=== PATIENT | male | born 1965 | race Caucasian/White ===

== ENCOUNTER → 2023-03-27 06:28 | Day surgery (SDC) | payer OTHER, SELFPAY | LOC: GI 06:28 | PROVIDERS: ATTENDING PHYSICIAN Surgery | DX: Z12.11 Encounter for screening for malignant neoplasm of colon (principal); Z85.038 Personal history of other malignant neoplasm of large intestine | CPT/HCPCS: G0105 ==

== ENCOUNTER → 2023-09-14 11:34 | Outpatient (REF) | payer OTHER, SELFPAY | LOC: RAD 11:34 | PROVIDERS: ATTENDING PHYSICIAN Nurse Practitioner Primary Care; FAMILY PHYSICIAN Family Medicine | DX: C18.7 Malignant neoplasm of sigmoid colon (principal) | CPT/HCPCS: 71260; 74177; Q9967 ==

== ENCOUNTER → 2023-10-23 13:13 | Outpatient (REF) | payer OTHER, SELFPAY ==
[2023-10-23 13:34] VITALS: BP 149/77; BP_SYST 104
[2023-10-23 14:24] VITALS: BP 137/81
== END ==
LOC: RADI 13:13
PROVIDERS: ATTENDING PHYSICIAN Internal Medicine Hematology & Oncology; REFERRING PHYSICIAN Surgery
DX: Z45.2 Encounter for adjustment and management of vascular access device (principal); Z85.038 Personal history of other malignant neoplasm of large intestine
CPT/HCPCS: 36590; 77001

== ENCOUNTER → 2024-03-26 12:56 | Outpatient (REF) | payer OTHER, SELFPAY | LOC: RAD 12:56 | PROVIDERS: ATTENDING PHYSICIAN Nurse Practitioner Primary Care; FAMILY PHYSICIAN Family Medicine | DX: C18.7 Malignant neoplasm of sigmoid colon (principal) | CPT/HCPCS: 71260; 74177; Q9967 ==

== ENCOUNTER → 2024-04-24 10:32 | Outpatient (REF) | payer OTHER, SELFPAY | LOC: MRI 3T 10:32 | PROVIDERS: ATTENDING PHYSICIAN Surgery; FAMILY PHYSICIAN Family Medicine | DX: R97.20 Elevated prostate specific antigen [PSA] (principal) | CPT/HCPCS: 72197; A9575 ==

== ENCOUNTER 2024-11-18 06:18 | Day surgery (SDC) | payer OTHER, SELFPAY | END 2024-11-18 14:45 | disposition home or self-care (01) | LOC: GI 06:18 | PROVIDERS: ATTENDING PHYSICIAN Surgery | DX: Z12.11 Encounter for screening for malignant neoplasm of colon (principal); D17.5 Benign lipomatous neoplasm of intra-abdominal organs; D12.0 Benign neoplasm of cecum; D12.2 Benign neoplasm of ascending colon; D12.4 Benign neoplasm of descending colon; D12.5 Benign neoplasm of sigmoid colon; Z85.048 Personal history of other malignant neoplasm of rectum, rectosigmoid junction, and anus; Z98.84 Bariatric surgery status | CPT/HCPCS: 45385; 45381; 45380; 88305 ==

== ENCOUNTER → 2024-11-19 11:58 | Outpatient (REF) | payer OTHER, SELFPAY | LOC: RAD 11:58 | PROVIDERS: ATTENDING PHYSICIAN Internal Medicine Hematology & Oncology; FAMILY PHYSICIAN Family Medicine | DX: C18.7 Malignant neoplasm of sigmoid colon (principal) | CPT/HCPCS: 71260; 74177; Q9967 ==

== ENCOUNTER → 2024-12-11 17:48 | Outpatient (REF) | payer OTHER, SELFPAY | LOC: MRI 17:48 | PROVIDERS: ATTENDING PHYSICIAN Surgery; FAMILY PHYSICIAN Family Medicine | DX: R93.3 Abnormal findings on diagnostic imaging of other parts of digestive tract (principal) | CPT/HCPCS: 72197; A9575 ==